=== PATIENT | female | born 1955 | race Caucasian/White ===

== ENCOUNTER 2021-01-10 21:19 | Inpatient (IN) | payer OTHER ==
[2021-01-10] MEDS ORDERED: LACTATED RINGERS SOLUTION 1000 ML INFUS.BAG IV ONE (21:47)
[2021-01-10] MEDS ORDERED: ONDANSETRON 4 MG/2 ML VIAL IVPUSH ONE ×2 (21:47→23:51)
[2021-01-10 22:04] LABS: HEMATOCRIT 30.3 % (32.4-45.2); HEMOGLOBIN 9.8 GM/dL (10.7-15.3); MCH 22.1 pg (25.7-33.7); MCHC 32.3 g/dl (32.0-36.0); MEAN CELL VOLUME 68.4 fl (80-96); MEAN PLT VOLUME 8.4 fl (7.5-11.1); PLATELET COUNT 412 K/MM3 (134-434); RBC 4.44 M/mm3 (3.60-5.2); RDW 21.8 % (11.6-15.6); WHITE BLOOD COUNT 8.1 K/mm3 (4.0-10.0)
[2021-01-10] MEDS ORDERED: ONDANSETRON 4 MG/2 ML VIAL ONE (22:07)
[2021-01-10 22:15] LABS: CHLORIDE 104 mmol/L (98-107); SODIUM 137 mmol/L (136-145)
[2021-01-10 22:17] LABS: CALCIUM 9.1 mg/dL (8.5-10.1)
[2021-01-10 22:18] LABS: ALBUMIN 3.8 g/dl (3.4-5.0); ANION GAP 10 MMOL/L (8-16); BLOOD UREA NITROGEN 6.5 mg/dL (7-18); CO2 24 mmol/L (21-32); GLUCOSE,RANDOM 146 mg/dL (74-106); LIPASE 43 U/L (73-393); MAGNESIUM 1.8 mg/dL (1.8-2.4)
[2021-01-10 22:21] LABS: SGOT/AST 11 U/L (15-37); SGPT/ALT 10 U/L (13-61)
[2021-01-10 22:22] LABS: BILIRUBIN,TOTAL 0.5 mg/dL (0.2-1); TOT PROT 6.6 g/dl (6.4-8.2)
[2021-01-10 22:24] LABS: ALK PHOS 46 U/L (45-117)
[2021-01-10 22:29] LABS: ANISOCYTOSIS 3+; MACROCYTOSIS 1+; PLATELET ESTIMATE NORMAL
[2021-01-10] MEDS ORDERED: CEFAZOLIN 1 GM/D5W 1 GM/50 ML BAG IVPB ONE (23:29)
[2021-01-10] MEDS ORDERED: chlordiazePOXIDE HCL 25 MG CAPSULE PO ONE (23:50)
[2021-01-11] MEDS ORDERED: chlordiazePOXIDE HCL 25 MG CAPSULE ONE ×2 (00:01→05:26)
[2021-01-11] MEDS ORDERED: ONDANSETRON 4 MG/2 ML VIAL ONE (00:02)
[2021-01-11] MEDS ORDERED: CEFAZOLIN 1 GM/D5W 1 GM/50 ML BAG ONE (00:04)
[2021-01-11] MEDS ORDERED: DOCUSATE SODIUM 100 MG CAPSULE (FP) PO PRN (00:53)
[2021-01-11] MEDS ORDERED: chlordiazePOXIDE HCL 25 MG CAPSULE PO PRN (01:02)
[2021-01-11] MEDS ORDERED: ALBUTEROL SO4 HFA INHALER IH PRN (01:07)
[2021-01-11] MEDS ORDERED: ONDANSETRON 4 MG/2 ML VIAL IVPUSH ONE (01:46)
[2021-01-11 03:23] LABS: EPI CELLS 15 /uL (0-25.1); HYALINE CASTS 0 /uL (0-3.1); PH,URINE 7.5 (5.0-8.0); URINE APPEARANCE CLEAR; URINE BACTERIA 141 /uL (0-1359); URINE BILIRUBIN NEGATIVE (NEGATIVE); URINE COLOR YELLOW; URINE GLUCOSE (UA) NEGATIVE (NEGATIVE); URINE KETONE NEGATIVE (NEGATIVE); URINE LEUK ESTERASE 2+ (NEGATIVE); URINE NITRITE NEGATIVE (NEGATIVE); URINE PROTEIN NEGATIVE (NEGATIVE); URINE RBC 1 /uL (0-23.9); URINE UROBILINOGEN 0.2 mg/dL (0.2-1.0); URINE WBC 41 /uL (0-25.8)
[2021-01-11 03:26] LABS: METHADONE, UR NEGATIVE ng/ml (CUTOFF=300); PHENCYCLIDINE,URINE NEGATIVE ng/ml (CUTOFF=25); URINE BARBITURATES NEGATIVE ng/ml (CUTOFF=200)
[2021-01-11 03:28] LABS: URINE BENZODIAZEPINES NEGATIVE ng/ml (CUTOFF=200)
[2021-01-11 03:43] LABS: COCAINE, UR NEGATIVE ng/ml (CUTOFF=300); URINE AMPHETAMINES NEGATIVE ng/ml (CUTOFF=500)
[2021-01-11 03:53] LABS: OPIATES, URI POSITIVE ng/ml (CUTOFF=300)
[2021-01-11] MEDS: SODIUM CHLORIDE 1,000 ML IV SCH ×2 (04:12→13:34)
[2021-01-11] MEDS ORDERED: ACETAMINOPHEN 325 MG TABLET (FP) ONE (05:26)
[2021-01-11] MEDS ORDERED: oxyCODONE HCL 5 MG TABLET ONE (05:27)
[2021-01-11] MEDS: chlordiazePOXIDE HCL 25 MG CAPSULE PO SCH ×2 (05:42→11:48)
[2021-01-11] MEDS: ACETAMINOPHEN 325 MG TABLET (FP) PO SCH ×3 (05:44→22:43)
[2021-01-11] MEDS ORDERED: oxyCODONE HCL 5 MG TABLET PO SCH (06:00)
[2021-01-11] MEDS ORDERED: RAMIPRIL 5 MG CAPSULE PO ONE (06:57)
[2021-01-11 07:13] LABS: ALBUMIN 3.3 g/dl (3.4-5.0)
[2021-01-11 07:14] LABS: BLOOD UREA NITROGEN 6.6 mg/dL (7-18); MAGNESIUM 1.9 mg/dL (1.8-2.4)
[2021-01-11 07:16] LABS: PHOSPHOROUS 3.2 mg/dL (2.5-4.9)
[2021-01-11 07:17] LABS: CREATININE 0.9 mg/dL (0.55-1.3)
[2021-01-11 07:18] LABS: BILIRUBIN,TOTAL 0.6 mg/dL (0.2-1); TOT PROT 6.2 g/dl (6.4-8.2)
[2021-01-11] MEDS ORDERED: RAMIPRIL 5 MG CAPSULE ONE (07:46)
[2021-01-11 08:00] LABS: BASO % 0.5 % (0-2.0); EOS % 0.5 % (0-4.5); HEMATOCRIT 26.4 % (32.4-45.2); HEMOGLOBIN 8.6 GM/dL (10.7-15.3); LYMPH % 38.8 % (8-40); MCH 22.6 pg (25.7-33.7); MCHC 32.5 g/dl (32.0-36.0); MEAN CELL VOLUME 69.4 fl (80-96); MONO % 9.7 % (3.8-10.2); NEUT % 50.5 % (42.8-82.8); PLATELET COUNT 349 K/MM3 (134-434); RDW 21.8 % (11.6-15.6); WHITE BLOOD COUNT 7.6 K/mm3 (4.0-10.0)
[2021-01-11] MEDS: ENOXAPARIN NA (PORCINE) 40 MG/0.4 ML DISP.SYRIN SQ SCH (09:37)
[2021-01-11] MEDS: ESCITALOPRAM OXALATE 10 MG TABLET PO SCH (09:37)
[2021-01-11] MEDS ORDERED: BUDESONIDE/FORMETEROL FUMARATE 160/4.5 mcg INHALER IH SCH ×2 (10:00)
[2021-01-11] MEDS ORDERED: RAMIPRIL 5 MG CAPSULE PO SCH (10:00)
[2021-01-11] MEDS: FERROUS SO4 325 MG TABLET (FP) PO SCH ×2 (11:50→17:17)
[2021-01-11 12:02] VITALS: BMI 34.0
[2021-01-11] MEDS ORDERED: LABETALOL HCL 200 MG TABLET (FP) PO ONE (13:42)
[2021-01-11] MEDS ORDERED: LABETALOL HCL 100 MG TABLET (FP) PO ONE (14:00)
[2021-01-11] MEDS: ZINC OXIDE 20% TOPICAL OINTMENT 30 GM TUBE TP SCH ×2 (14:16→22:44)
[2021-01-11] MEDS: diazePAM 5 MG TABLET PO SCH ×2 (16:50→22:44)
[2021-01-11] MEDS: oxyCODONE HCL 5 MG TABLET PO PRN (20:29)
[2021-01-11] MEDS ORDERED: PT OWN MED DRAWER 7, Y5N ONE (22:41)
[2021-01-12] MEDS: SODIUM CHLORIDE 1,000 ML IV SCH (01:16)
[2021-01-12] MEDS ORDERED: chlordiazePOXIDE HCL 25 MG CAPSULE PO SCH (05:00)
[2021-01-12] MEDS: diazePAM 5 MG TABLET PO SCH ×4 (06:00→23:07)
[2021-01-12] MEDS: ACETAMINOPHEN 325 MG TABLET (FP) PO SCH ×3 (06:04→21:33)
[2021-01-12 08:36] LABS: HEMATOCRIT 29.6 % (32.4-45.2); HEMOGLOBIN 9.4 GM/dL (10.7-15.3); MCH 22.4 pg (25.7-33.7); MCHC 31.6 g/dl (32.0-36.0); MEAN PLT VOLUME 8.9 fl (7.5-11.1); PLATELET COUNT 369 K/MM3 (134-434); RBC 4.17 M/mm3 (3.60-5.2); WHITE BLOOD COUNT 6.1 K/mm3 (4.0-10.0)
[2021-01-12 08:50] LABS: ALBUMIN 3.7 g/dl (3.4-5.0); CALCIUM 9.1 mg/dL (8.5-10.1)
[2021-01-12 08:51] LABS: BLOOD UREA NITROGEN 7.6 mg/dL (7-18); MAGNESIUM 2.1 mg/dL (1.8-2.4)
[2021-01-12 08:54] LABS: CREATININE 1.1 mg/dL (0.55-1.3); PHOSPHOROUS 4.4 mg/dL (2.5-4.9)
[2021-01-12 08:55] LABS: BILIRUBIN,TOTAL 0.5 mg/dL (0.2-1); TOT PROT 6.5 g/dl (6.4-8.2)
[2021-01-12] MEDS: FERROUS SO4 325 MG TABLET (FP) PO SCH ×3 (09:35→17:32)
[2021-01-12] MEDS: RAMIPRIL 5 MG CAPSULE PO SCH (09:35)
[2021-01-12] MEDS: ESCITALOPRAM OXALATE 10 MG TABLET PO SCH (09:35)
[2021-01-12] MEDS: diazePAM 5 MG TABLET PO PRN (09:37)
[2021-01-12] MEDS: ENOXAPARIN NA (PORCINE) 40 MG/0.4 ML DISP.SYRIN SQ SCH (09:47)
[2021-01-12] MEDS: ONDANSETRON 4 MG/2 ML VIAL IVPUSH PRN (09:53)
[2021-01-12] MEDS: ZINC OXIDE 20% TOPICAL OINTMENT 30 GM TUBE TP SCH ×2 (10:01→21:34)
[2021-01-12] MEDS: oxyCODONE HCL 5 MG TABLET PO PRN (13:11)
[2021-01-12] MEDS: LACTOBACILLUS ACIDOPHILUS 1 TABLET PO SCH (21:34)
[2021-01-13] MEDS ORDERED: chlordiazePOXIDE HCL 10 MG CAPSULE PO PRN
[2021-01-13] MEDS ORDERED: chlordiazePOXIDE HCL 10 MG CAPSULE PO SCH (05:00)
[2021-01-13] MEDS: ACETAMINOPHEN 325 MG TABLET (FP) PO SCH ×3 (06:17→21:06)
[2021-01-13] MEDS: diazePAM 5 MG TABLET PO SCH ×3 (06:18→21:10)
[2021-01-13] MEDS: ESCITALOPRAM OXALATE 10 MG TABLET PO SCH (09:01)
[2021-01-13] MEDS: RAMIPRIL 5 MG CAPSULE PO SCH (09:01)
[2021-01-13] MEDS: FERROUS SO4 325 MG TABLET (FP) PO SCH ×3 (09:01→17:10)
[2021-01-13] MEDS: LACTOBACILLUS ACIDOPHILUS 1 TABLET PO SCH ×2 (09:01→21:09)
[2021-01-13] MEDS: ENOXAPARIN NA (PORCINE) 40 MG/0.4 ML DISP.SYRIN SQ SCH (09:08)
[2021-01-13] MEDS: ONDANSETRON 4 MG/2 ML VIAL IVPUSH PRN (09:09)
[2021-01-13] MEDS: ZINC OXIDE 20% TOPICAL OINTMENT 30 GM TUBE TP SCH ×2 (09:09→21:10)
[2021-01-13 09:23] LABS: HEMATOCRIT 30.8 % (32.4-45.2); HEMOGLOBIN 9.6 GM/dL (10.7-15.3); MEAN CELL VOLUME 70.9 fl (80-96); MEAN PLT VOLUME 8.6 fl (7.5-11.1); PLATELET COUNT 366 K/MM3 (134-434); RBC 4.35 M/mm3 (3.60-5.2); RDW 22.4 % (11.6-15.6); WHITE BLOOD COUNT 7.1 K/mm3 (4.0-10.0)
[2021-01-13 09:52] LABS: CALCIUM 9.4 mg/dL (8.5-10.1)
[2021-01-13 09:53] LABS: ALBUMIN 3.8 g/dl (3.4-5.0); BLOOD UREA NITROGEN 6.3 mg/dL (7-18)
[2021-01-13 09:56] LABS: CREATININE 1.2 mg/dL (0.55-1.3); PHOSPHOROUS 3.4 mg/dL (2.5-4.9)
[2021-01-13 09:57] LABS: BILIRUBIN,TOTAL 0.8 mg/dL (0.2-1); TOT PROT 6.7 g/dl (6.4-8.2)
[2021-01-13] MEDS ORDERED: amLODIPine BESYLATE 2.5 MG TABLET (FP) PO SCH (10:00)
[2021-01-13] MEDS: MECLIZINE HCL 12.5 MG TABLET PO PRN ×2 (11:38→21:35)
[2021-01-13] MEDS: FLUTICASONE/SALMETEROL 100 MCG/50 MCG DISKUS IH SCH ×2 (11:38→21:07)
[2021-01-13] MEDS: oxyCODONE HCL 5 MG TABLET PO PRN (14:08)
[2021-01-13] MEDS ORDERED: amLODIPine BESYLATE 5 MG TABLET (FP) PO ONE (17:55)
[2021-01-14] MEDS ORDERED: SCOPOLAMINE HYDROBROMIDE 1 PATCH PATCH.TD72 TD SCH (04:15)
[2021-01-14] MEDS ORDERED: chlordiazePOXIDE HCL 10 MG CAPSULE PO SCH (05:00)
[2021-01-14] MEDS ORDERED: diazePAM 5 MG TABLET PO SCH (06:00)
[2021-01-14] MEDS: ACETAMINOPHEN 325 MG TABLET (FP) PO SCH ×2 (06:22→13:15)
[2021-01-14 09:02] LABS: ALBUMIN 3.3 g/dl (3.4-5.0); CALCIUM 9.5 mg/dL (8.5-10.1)
[2021-01-14 09:03] LABS: BLOOD UREA NITROGEN 6.6 mg/dL (7-18); MAGNESIUM 2.2 mg/dL (1.8-2.4)
[2021-01-14 09:06] LABS: CREATININE 0.9 mg/dL (0.55-1.3)
[2021-01-14 09:07] LABS: BILIRUBIN,TOTAL 0.4 mg/dL (0.2-1); PHOSPHOROUS 4.7 mg/dL (2.5-4.9)
[2021-01-14] MEDS: LACTOBACILLUS ACIDOPHILUS 1 TABLET PO SCH (09:09)
[2021-01-14] MEDS: ESCITALOPRAM OXALATE 10 MG TABLET PO SCH (09:09)
[2021-01-14] MEDS: ZINC OXIDE 20% TOPICAL OINTMENT 30 GM TUBE TP SCH (09:10)
[2021-01-14] MEDS: ENOXAPARIN NA (PORCINE) 40 MG/0.4 ML DISP.SYRIN SQ SCH (09:10)
[2021-01-14] MEDS: RAMIPRIL 5 MG CAPSULE PO SCH (09:10)
[2021-01-14] MEDS: FERROUS SO4 325 MG TABLET (FP) PO SCH ×2 (09:10→13:15)
[2021-01-14] MEDS: FLUTICASONE/SALMETEROL 100 MCG/50 MCG DISKUS IH SCH (09:12)
[2021-01-14] MEDS ORDERED: amLODIPine BESYLATE 5 MG TABLET (FP) PO SCH (10:00)
[2021-01-14] MEDS: diazePAM 5 MG TABLET PO PRN (10:27)
[2021-01-14] MEDS ORDERED: MECLIZINE HCL 25 MG TABLET (FP) PO ONE (12:41)
[2021-01-14] MEDS ORDERED: MECLIZINE HCL 25 MG TABLET (FP) PO PRN (12:42)
[2021-01-14 14:11] VITALS: PULSE 72
[2021-01-14] MEDS ORDERED: diazePAM 5 MG TABLET PO ONE (16:54)
[2021-01-14 18:01] VITALS: BP 171/77; TEMP 98.9
[2021-01-14] MEDS ORDERED: RAMIPRIL 5 MG CAPSULE PO SCH (22:00)
[2021-01-15] MEDS ORDERED: chlordiazePOXIDE HCL 10 MG CAPSULE PO ONE (05:00)
[2021-01-15] MEDS ORDERED: diazePAM 5 MG TABLET PO ONE (06:00)
== END 2021-01-14 18:02 | disposition home or self-care (01) | DRG 775 ==
LOC: JER 21:19 → JERBED 23:22 → J6S 01-11 08:50
PROVIDERS: ADMIT Hospitalist; ATTEND Internal Medicine
PROC: HZ2ZZZZ Detoxification Services for Substance Abuse Treatment (ICD-10-PCS; principal; 2021-01-10)
DX: F13.239 Sedative, hypnotic or anxiolytic dependence with withdrawal, unspecified (principal); I16.0 Hypertensive urgency; I10 Essential (primary) hypertension; D64.9 Anemia, unspecified; I69.392 Facial weakness following cerebral infarction; M79.661 Pain in right lower leg; R82.81 Pyuria; R42 Dizziness and giddiness; M54.9 Dorsalgia, unspecified; Z87.891 Personal history of nicotine dependence; F15.23 Other stimulant dependence with withdrawal; F41.9 Anxiety disorder, unspecified; R21 Rash and other nonspecific skin eruption; J44.9 Chronic obstructive pulmonary disease, unspecified; J45.909 Unspecified asthma, uncomplicated; F10.239 Alcohol dependence with withdrawal, unspecified
CPT/HCPCS: 36415; 71045-TC-FY; 80048; 80053; 80307; 81003; 82607; 82728; 82746; 83540; 83550; 83690; 83735; 84100; 84443; 84484; 85025; 85027; 85045; 87086; 93005; 93010; 97116-GP; 97161-GP; 99285-25; C9803; G0397; U0003; U0005

== ENCOUNTER 2021-06-14 13:46 | Emergency (ER) | payer OTHER ==
[2021-06-14 13:59] VITALS: TEMP 98.1; BMI 33.2
[2021-06-14] MEDS ORDERED: LACTATED RINGERS SOLUTION 1000 ML INFUS.BAG IV ONE (15:36)
[2021-06-14] MEDS ORDERED: ONDANSETRON 4 MG/2 ML VIAL IVPUSH ONE (16:32)
[2021-06-14] MEDS ORDERED: ONDANSETRON 4 MG/2 ML VIAL ONE (17:08)
[2021-06-14 17:22] LABS: ALBUMIN 4.2 g/dl (3.4-5.0); BLOOD UREA NITROGEN 8.2 mg/dL (7-18); CALCIUM 9.4 mg/dL (8.5-10.1)
[2021-06-14 17:25] LABS: CREATININE 0.9 mg/dL (0.55-1.3)
[2021-06-14 17:27] LABS: BILIRUBIN,TOTAL 0.5 mg/dL (0.2-1); TOT PROT 7.7 g/dl (6.4-8.2)
[2021-06-14] MEDS ORDERED: ACETAMINOPHEN 1000 MG/100 ML VIAL (NON FORMULARY) IVPB ONE (18:33)
[2021-06-14 18:52] LABS: BASO % 0.7 % (0-2.0); EOS % 0.8 % (0-4.5); HEMATOCRIT 37.2 % (32.4-45.2); HEMOGLOBIN 12.2 GM/dL (10.7-15.3); LYMPH % 36.4 % (8-40); MCH 25.4 pg (25.7-33.7); MCHC 32.9 g/dl (32.0-36.0); MEAN CELL VOLUME 77.1 fl (80-96); MEAN PLT VOLUME 8.1 fl (7.5-11.1); MONO % 4.9 % (3.8-10.2); NEUT % 57.2 % (42.8-82.8); PLATELET COUNT 412 10^3/uL (134-434); RBC 4.82 M/mm3 (3.60-5.2); RDW 17.3 % (11.6-15.6); WHITE BLOOD COUNT 7.9 K/mm3 (4.0-10.0)
[2021-06-14 19:17] LABS: CALCIUM 9.8 mg/dL (8.5-10.1)
[2021-06-14 19:18] LABS: BLOOD UREA NITROGEN 7.3 mg/dL (7-18)
[2021-06-14] MEDS ORDERED: cloNIDine HCL 0.1 MG TABLET PO ONE (19:50)
[2021-06-14 20:18] VITALS: BP 203/74; PULSE 66
[2021-06-14] MEDS ORDERED: cloNIDine HCL 0.1 MG TABLET ONE (20:20)
== END 2021-06-14 21:27 | disposition short-term general hospital (02) ==
LOC: JER 13:46
PROC: 3E0333Z Introduction of Anti-inflammatory into Peripheral Vein, Percutaneous Approach (ICD-10-PCS; principal; 2021-06-14)
PROC: 3E033GC Introduction of Other Therapeutic Substance into Peripheral Vein, Percutaneous Approach (ICD-10-PCS; 2021-06-14)
DX: F13.20 Sedative, hypnotic or anxiolytic dependence, uncomplicated (principal)
CPT/HCPCS: 36415; 80048; 80053; 84484; 85025; 93005; 93010; 99284-25; J0131; J0735

== ENCOUNTER 2021-06-15 01:39 | Inpatient (IN) | payer OTHER ==
[2021-06-15] MEDS ORDERED: FOLIC ACID INJECTION - 1 MG, THIAMINE HCL 100 MG, MULTIVIT INJECTION ADULT 10 ML in SOD... IVPB ONE (03:02)
[2021-06-15] MEDS ORDERED: amLODIPine BESYLATE 5 MG TABLET (FP) PO ONE (03:04)
[2021-06-15] MEDS ORDERED: MECLIZINE HCL 25 MG TABLET (FP) PO PRN (03:04)
[2021-06-15] MEDS ORDERED: amLODIPine BESYLATE 5 MG TABLET (FP) ONE (03:45)
[2021-06-15] MEDS ORDERED: ONDANSETRON 4 MG/2 ML VIAL IVPUSH PRN (05:17)
[2021-06-15] MEDS ORDERED: ONDANSETRON 4 MG/2 ML VIAL ONE (05:32)
[2021-06-15] MEDS ORDERED: diazePAM 5 MG TABLET ONE (05:32)
[2021-06-15] MEDS: diazePAM 5 MG TABLET PO SCH ×4 (05:44→23:07)
[2021-06-15 06:35] LABS: COCAINE, UR NEGATIVE (NEGATIVE); METHADONE, UR NEGATIVE (NEGATIVE); OPIATES, URI NEGATIVE (NEGATIVE); PHENCYCLIDINE,URINE NEGATIVE (NEGATIVE); URINE BARBITURATES NEGATIVE (NEGATIVE)
[2021-06-15 06:53] VITALS: BMI 26.8
[2021-06-15 06:57] LABS: URINE AMPHETAMINES NEGATIVE (NEGATIVE); URINE BENZODIAZEPINES POSITIVE (NEGATIVE)
[2021-06-15] MEDS: LISINOPRIL 10 MG TABLET PO SCH ×2 (10:20→21:38)
[2021-06-15] MEDS: THIAMINE HCL 100 MG TABLET (FP) PO SCH (10:20)
[2021-06-15] MEDS: FOLIC ACID 1 MG TABLET (FP) PO SCH (10:20)
[2021-06-15] MEDS: amLODIPine BESYLATE 5 MG TABLET (FP) PO SCH (10:20)
[2021-06-15] MEDS: ENOXAPARIN NA (PORCINE) 40 MG/0.4 ML DISP.SYRIN SQ SCH (10:21)
[2021-06-15] MEDS: ESCITALOPRAM OXALATE 10 MG TABLET PO SCH (10:25)
[2021-06-15] MEDS: ACETAMINOPHEN 325 MG TABLET (FP) PO PRN ×2 (11:32→19:24)
[2021-06-15 12:37] LABS: BASO % 0.9 % (0-2.0); EOS % 0.5 % (0-4.5); HEMATOCRIT 38.8 % (32.4-45.2); HEMOGLOBIN 12.7 GM/dL (10.7-15.3); LYMPH % 19.8 % (8-40); MCH 25.5 pg (25.7-33.7); MCHC 32.7 g/dl (32.0-36.0); MEAN CELL VOLUME 77.9 fl (80-96); MEAN PLT VOLUME 8.5 fl (7.5-11.1); MONO % 4.6 % (3.8-10.2); NEUT % 74.2 % (42.8-82.8); PLATELET COUNT 409 10^3/uL (134-434); RBC 4.98 M/mm3 (3.60-5.2); RDW 17.6 % (11.6-15.6); WHITE BLOOD COUNT 5.8 K/mm3 (4.0-10.0)
[2021-06-15 12:43] LABS: ALBUMIN 4.5 g/dl (3.4-5.0); CALCIUM 9.9 mg/dL (8.5-10.1)
[2021-06-15 12:44] LABS: BLOOD UREA NITROGEN 7.1 mg/dL (7-18)
[2021-06-15 12:47] LABS: CREATININE 0.9 mg/dL (0.55-1.3)
[2021-06-15 12:48] LABS: BILIRUBIN,TOTAL 0.8 mg/dL (0.2-1); TOT PROT 8.3 g/dl (6.4-8.2)
[2021-06-15] MEDS ORDERED: LISINOPRIL 10 MG TABLET PO ONE (14:40)
[2021-06-15] MEDS ORDERED: METOPROLOL TARTRATE 25 MG TABLET (FP) PO ONE ×2 (15:00→20:26)
[2021-06-16] MEDS: diazePAM 5 MG TABLET PO PRN ×3 (02:29→18:29)
[2021-06-16] MEDS: diazePAM 5 MG TABLET PO SCH ×2 (06:14→15:16)
[2021-06-16 07:28] LABS: BASO % 0.8 % (0-2.0); HEMATOCRIT 36.5 % (32.4-45.2); HEMOGLOBIN 11.9 GM/dL (10.7-15.3); LYMPH % 22.9 % (8-40); MCH 25.4 pg (25.7-33.7); MCHC 32.7 g/dl (32.0-36.0); MEAN CELL VOLUME 77.8 fl (80-96); MONO % 6.9 % (3.8-10.2); NEUT % 68.4 % (42.8-82.8); PLATELET COUNT 417 10^3/uL (134-434); RDW 17.4 % (11.6-15.6)
[2021-06-16 08:13] LABS: ALBUMIN 3.8 g/dl (3.4-5.0); BLOOD UREA NITROGEN 9.4 mg/dL (7-18); CALCIUM 9.6 mg/dL (8.5-10.1); MAGNESIUM 2.2 mg/dL (1.8-2.4)
[2021-06-16 08:15] LABS: CREATININE 0.9 mg/dL (0.55-1.3); PHOSPHOROUS 4.5 mg/dL (2.5-4.9)
[2021-06-16 08:17] LABS: BILIRUBIN,TOTAL 0.7 mg/dL (0.2-1); TOT PROT 7.2 g/dl (6.4-8.2)
[2021-06-16] MEDS ORDERED: METOPROLOL TARTRATE 25 MG TABLET (FP) PO SCH ×2 (10:00→10:40)
[2021-06-16] MEDS: ENOXAPARIN NA (PORCINE) 40 MG/0.4 ML DISP.SYRIN SQ SCH (11:31)
[2021-06-16] MEDS: amLODIPine BESYLATE 5 MG TABLET (FP) PO SCH (11:32)
[2021-06-16] MEDS: ESCITALOPRAM OXALATE 10 MG TABLET PO SCH (11:32)
[2021-06-16] MEDS: FOLIC ACID 1 MG TABLET (FP) PO SCH (11:54)
[2021-06-16] MEDS: THIAMINE HCL 100 MG TABLET (FP) PO SCH (11:54)
[2021-06-16] MEDS: LISINOPRIL 10 MG TABLET PO SCH ×2 (11:55→21:19)
[2021-06-16 17:35] LABS: EPI CELLS 11 /uL (0-25.1); HYALINE CASTS 1 /uL (0-3.1); PH,URINE 6.5 (5.0-8.0); URINE APPEARANCE CLEAR; URINE BACTERIA 90 /uL (0-1359); URINE BILIRUBIN NEGATIVE (NEGATIVE); URINE COLOR YELLOW; URINE GLUCOSE (UA) NEGATIVE (NEGATIVE); URINE KETONE 1+ (NEGATIVE); URINE LEUK ESTERASE 1+ (NEGATIVE); URINE NITRITE NEGATIVE (NEGATIVE); URINE PROTEIN 1+ (NEGATIVE); URINE RBC 5 /uL (0-23.9); URINE WBC 36 /uL (0-25.8)
[2021-06-16] MEDS ORDERED: ONDANSETRON 4 MG/2 ML VIAL IVPUSH PRN (19:24)
[2021-06-16] MEDS: METOPROLOL TARTRATE 25 MG TABLET (FP) PO SCH (21:16)
[2021-06-16] MEDS ORDERED: diazePAM 5 MG TABLET PO SCH (22:00)
[2021-06-17] MEDS: diazePAM 5 MG TABLET PO PRN ×2 (00:05→21:42)
[2021-06-17] MEDS ORDERED: diazePAM 5 MG TABLET PO SCH (06:00)
[2021-06-17] MEDS: diazePAM 5 MG TABLET PO SCH ×2 (06:56→17:20)
[2021-06-17 08:43] LABS: BASO % 0.8 % (0-2.0); EOS % 1.4 % (0-4.5); HEMATOCRIT 36.4 % (32.4-45.2); HEMOGLOBIN 11.8 GM/dL (10.7-15.3); LYMPH % 29.4 % (8-40); MCH 25.3 pg (25.7-33.7); MCHC 32.5 g/dl (32.0-36.0); MEAN CELL VOLUME 77.8 fl (80-96); MEAN PLT VOLUME 8.2 fl (7.5-11.1); MONO % 6.9 % (3.8-10.2); NEUT % 61.5 % (42.8-82.8); PLATELET COUNT 393 10^3/uL (134-434); RBC 4.68 M/mm3 (3.60-5.2); RDW 17.6 % (11.6-15.6); WHITE BLOOD COUNT 7.5 K/mm3 (4.0-10.0)
[2021-06-17 09:22] LABS: ALBUMIN 3.5 g/dl (3.4-5.0); BLOOD UREA NITROGEN 13.4 mg/dL (7-18); CALCIUM 9.4 mg/dL (8.5-10.1)
[2021-06-17 09:23] LABS: MAGNESIUM 2.2 mg/dL (1.8-2.4)
[2021-06-17 09:26] LABS: BILIRUBIN,TOTAL 0.5 mg/dL (0.2-1); CREATININE 0.9 mg/dL (0.55-1.3)
[2021-06-17 09:27] LABS: TOT PROT 6.7 g/dl (6.4-8.2)
[2021-06-17] MEDS: LISINOPRIL 10 MG TABLET PO SCH (10:03)
[2021-06-17] MEDS: ESCITALOPRAM OXALATE 10 MG TABLET PO SCH (10:03)
[2021-06-17] MEDS: FOLIC ACID 1 MG TABLET (FP) PO SCH (10:03)
[2021-06-17] MEDS: ENOXAPARIN NA (PORCINE) 40 MG/0.4 ML DISP.SYRIN SQ SCH (10:03)
[2021-06-17] MEDS: amLODIPine BESYLATE 10 MG TABLET (FP) PO SCH (10:03)
[2021-06-17] MEDS: THIAMINE HCL 100 MG TABLET (FP) PO SCH (10:04)
[2021-06-17] MEDS: METOPROLOL TARTRATE 25 MG TABLET (FP) PO SCH ×2 (10:04→21:43)
[2021-06-17] MEDS ORDERED: CEFTRIAXONE 1 GM in DEXTROSE 5%-WATER - 50 ML IVPB ONE (14:34)
[2021-06-17] MEDS ORDERED: SODIUM CHLORIDE 500 ML IV STA (14:34)
[2021-06-17] MEDS ORDERED: cefTRIAXone SODIUM 1 GM VIAL ONE (15:02)
[2021-06-17] MEDS ORDERED: DEXTROSE 5%-WATER - 50 ML IVPB ONE (15:02)
[2021-06-17] MEDS: ASPIRIN 81 MG CHEWABLE TABLETS PO SCH (15:06)
[2021-06-17] MEDS: ACETAMINOPHEN 325 MG TABLET (FP) PO PRN (15:14)
[2021-06-17] MEDS: LISINOPRIL 20 MG TABLET PO SCH (21:43)
[2021-06-18] MEDS: diazePAM 5 MG TABLET PO PRN (01:45)
[2021-06-18] MEDS ORDERED: diazePAM 5 MG TABLET PO ONE ×2 (06:00)
[2021-06-18] MEDS: MECLIZINE HCL 25 MG TABLET (FP) PO PRN (09:16)
[2021-06-18] MEDS: ENOXAPARIN NA (PORCINE) 40 MG/0.4 ML DISP.SYRIN SQ SCH (09:16)
[2021-06-18] MEDS: FOLIC ACID 1 MG TABLET (FP) PO SCH (09:17)
[2021-06-18] MEDS: ASPIRIN 81 MG CHEWABLE TABLETS PO SCH (09:17)
[2021-06-18] MEDS: amLODIPine BESYLATE 10 MG TABLET (FP) PO SCH (09:17)
[2021-06-18] MEDS: CEPHALEXIN MONOHYDRATE 500 MG CAPSULE (UD) PO SCH ×2 (09:17→21:02)
[2021-06-18] MEDS: ESCITALOPRAM OXALATE 10 MG TABLET PO SCH (09:17)
[2021-06-18] MEDS: LISINOPRIL 20 MG TABLET PO SCH ×2 (09:17→21:02)
[2021-06-18] MEDS: METOPROLOL TARTRATE 25 MG TABLET (FP) PO SCH ×2 (09:17→21:02)
[2021-06-18] MEDS: THIAMINE HCL 100 MG TABLET (FP) PO SCH (09:17)
[2021-06-18 10:57] LABS: BASO % 0.5 % (0-2.0); EOS % 1.5 % (0-4.5); HEMATOCRIT 37.3 % (32.4-45.2); LYMPH % 28.9 % (8-40); MCH 25.3 pg (25.7-33.7); MCHC 32.1 g/dl (32.0-36.0); MEAN CELL VOLUME 78.8 fl (80-96); MEAN PLT VOLUME 8.2 fl (7.5-11.1); MONO % 7.5 % (3.8-10.2); NEUT % 61.6 % (42.8-82.8); PLATELET COUNT 415 10^3/uL (134-434); RBC 4.74 M/mm3 (3.60-5.2); RDW 18.2 % (11.6-15.6)
[2021-06-18 11:26] LABS: ALBUMIN 3.8 g/dl (3.4-5.0); CALCIUM 9.6 mg/dL (8.5-10.1)
[2021-06-18 11:27] LABS: BLOOD UREA NITROGEN 12.9 mg/dL (7-18); MAGNESIUM 2.3 mg/dL (1.8-2.4)
[2021-06-18 11:30] LABS: PHOSPHOROUS 3.8 mg/dL (2.5-4.9)
[2021-06-18 11:31] LABS: BILIRUBIN,TOTAL 0.3 mg/dL (0.2-1); TOT PROT 7.3 g/dl (6.4-8.2)
[2021-06-19] MEDS ORDERED: MELATONIN 5 MG TABLETS PO ONE ×2 (02:20→21:55)
[2021-06-19] MEDS: amLODIPine BESYLATE 10 MG TABLET (FP) PO SCH (09:50)
[2021-06-19] MEDS: LISINOPRIL 20 MG TABLET PO SCH ×2 (09:50→21:45)
[2021-06-19] MEDS: CEPHALEXIN MONOHYDRATE 500 MG CAPSULE (UD) PO SCH ×2 (09:50→21:44)
[2021-06-19] MEDS: METOPROLOL TARTRATE 25 MG TABLET (FP) PO SCH ×2 (09:50→21:44)
[2021-06-19] MEDS: MECLIZINE HCL 25 MG TABLET (FP) PO PRN (09:50)
[2021-06-19] MEDS: THIAMINE HCL 100 MG TABLET (FP) PO SCH (09:50)
[2021-06-19] MEDS: ESCITALOPRAM OXALATE 10 MG TABLET PO SCH (09:50)
[2021-06-19] MEDS: FOLIC ACID 1 MG TABLET (FP) PO SCH (09:50)
[2021-06-19] MEDS: ENOXAPARIN NA (PORCINE) 40 MG/0.4 ML DISP.SYRIN SQ SCH (09:51)
[2021-06-19] MEDS: ASPIRIN 81 MG CHEWABLE TABLETS PO SCH (09:51)
[2021-06-19] MEDS: diazePAM 5 MG TABLET PO PRN (11:30)
[2021-06-19] MEDS ORDERED: traZODone HCL 50 MG TABLET (FP) PO ONE (21:15)
[2021-06-19] MEDS ORDERED: MELATONIN 5 MG TABLETS PO SCH (22:00)
[2021-06-20] MEDS: CEPHALEXIN MONOHYDRATE 500 MG CAPSULE (UD) PO SCH ×2 (09:31→21:10)
[2021-06-20] MEDS: ESCITALOPRAM OXALATE 10 MG TABLET PO SCH (09:31)
[2021-06-20] MEDS: THIAMINE HCL 100 MG TABLET (FP) PO SCH (09:31)
[2021-06-20] MEDS: ENOXAPARIN NA (PORCINE) 40 MG/0.4 ML DISP.SYRIN SQ SCH (09:31)
[2021-06-20] MEDS: FOLIC ACID 1 MG TABLET (FP) PO SCH (09:31)
[2021-06-20] MEDS: ASPIRIN 81 MG CHEWABLE TABLETS PO SCH (09:31)
[2021-06-20] MEDS: LISINOPRIL 20 MG TABLET PO SCH ×2 (09:31→21:10)
[2021-06-20] MEDS: amLODIPine BESYLATE 10 MG TABLET (FP) PO SCH (09:31)
[2021-06-20] MEDS: METOPROLOL TARTRATE 25 MG TABLET (FP) PO SCH ×2 (09:31→21:10)
[2021-06-20] MEDS: MECLIZINE HCL 25 MG TABLET (FP) PO PRN (09:40)
[2021-06-20] MEDS: ACETAMINOPHEN 325 MG TABLET (FP) PO PRN (16:40)
[2021-06-21] MEDS ORDERED: MELATONIN 5 MG TABLETS PO PRN (00:57)
[2021-06-21] MEDS: LISINOPRIL 20 MG TABLET PO SCH (09:48)
[2021-06-21] MEDS: CEPHALEXIN MONOHYDRATE 500 MG CAPSULE (UD) PO SCH (09:48)
[2021-06-21] MEDS: amLODIPine BESYLATE 10 MG TABLET (FP) PO SCH (09:48)
[2021-06-21] MEDS: ASPIRIN 81 MG CHEWABLE TABLETS PO SCH (09:48)
[2021-06-21] MEDS: METOPROLOL TARTRATE 25 MG TABLET (FP) PO SCH (09:49)
[2021-06-21] MEDS: THIAMINE HCL 100 MG TABLET (FP) PO SCH (09:49)
[2021-06-21] MEDS: FOLIC ACID 1 MG TABLET (FP) PO SCH (09:49)
[2021-06-21] MEDS: ESCITALOPRAM OXALATE 10 MG TABLET PO SCH (09:49)
[2021-06-21] MEDS: ENOXAPARIN NA (PORCINE) 40 MG/0.4 ML DISP.SYRIN SQ SCH (09:51)
[2021-06-21] MEDS: MECLIZINE HCL 25 MG TABLET (FP) PO PRN (12:43)
[2021-06-21 16:01] VITALS: BP 141/66; PULSE 63; TEMP 98.1
== END 2021-06-21 18:18 | disposition home or self-care (01) | DRG 776 ==
LOC: JER 01:39 → JERBED 01:56 → INTOOBSV 01:56 → UNDOADMOB 01:56 → JERBED 07:48 → J4W 07:48 → JERBED 10:36 → J4W 06-16 12:00 → OBSVTOIN 06-16 12:10 → J6S 06-16 18:52
PROVIDERS: ADMIT Internal Medicine
DX: F13.239 Sedative, hypnotic or anxiolytic dependence with withdrawal, unspecified (principal); I10 Essential (primary) hypertension; J44.9 Chronic obstructive pulmonary disease, unspecified; F41.8 Other specified anxiety disorders; R19.7 Diarrhea, unspecified; F17.210 Nicotine dependence, cigarettes, uncomplicated; G89.29 Other chronic pain; E78.5 Hyperlipidemia, unspecified; K58.9 Irritable bowel syndrome, unspecified; N39.0 Urinary tract infection, site not specified
CPT/HCPCS: 36415; 80053; 80061; 80307; 81003; 82607; 83036; 83735; 84100; 84443; 85025; 86780; 97116-GP; 97161-GP; 99285-25; C9803; G0378; U0003; U0005